=== PATIENT | male | born 1935 | race Caucasian/White ===

== ENCOUNTER 2017-05-19 16:25 | Emergency (ER) | payer OTHER ==
[~2017-05-19] VITALS: Ht 172.7 cm; Wt 63.5 kg
[~2017-05-19 16:25] MED LIST: BACTRIM DS TAB1 EACH PO; FLOMAX0.4 MG PO
[2017-05-19 17:08] VITALS: BP 146/84
== END 2017-05-19 17:09 | disposition home or self-care (01) ==
LOC: M.ERS 16:25
DX: S01.112A Laceration without foreign body of left eyelid and periocular area, initial encounter (principal); Z88.0 Allergy status to penicillin; Z98.890 Other specified postprocedural states; W18.09XA Striking against other object with subsequent fall, initial encounter; Y93.89 Activity, other specified; Y92.89 Other specified places as the place of occurrence of the external cause; Y99.8 Other external cause status